=== PATIENT | male | born 1960 | race African-American/Black ===

== ENCOUNTER 2016-07-26 15:18 | Emergency (ER) | payer MEDICAID ==
[~2016-07-26] VITALS: Ht 177.8 cm; Wt 80.0 kg
[~2016-07-26 15:18] MED LIST: ASPI-1159 PO; ATOR40TA70 PO; CARB200T PO; HYDR25TA PO; LISI-604 PO; LORA10TA7 PO; METF10002 PO; MONT10TA21 PO; TERA2CAP53 PO
[2016-07-26 16:24] LABS: EOSINOPHILS % 8.3 % (0.0-5.0); HEMATOCRIT. 34.5 % (42.0-52.0); HEMOGLOBIN. 11.3 g/dL (14.0-18.0); LYMPHOCYTES % 20.9 % (20.0-50.0); MEAN CORPUSCULAR HEMOGLOBIN 28.9 pg (28.0-32.0); MEAN CORPUSCULAR VOLUME 88.1 fL (80.0-94.0); MEAN PLATELET VOLUME 7.2 fl (7.4-10.4); NEUTROPHILS % 59.8 % (40.0-76.0); PLATELET 252 x1000/uL (130-400); RED BLOOD CELL COUNT 3.92 mill/uL (4.7-6.1); RED CELL DISTRIBUTION WIDTH 13.2 % (11.6-14.6)
[2016-07-26 16:34] LABS: CARBAMAZEPINE 6.9 ug/mL (4-12); CARBON DIOXIDE 27 mEq/L (21-32); CHLORIDE 105 mEq/L (98-107); ETHANOL BLOOD < 10 mg/dL
[2016-07-26 17:42] LABS: CLARITY URINE CLEAR (CLEAR); COLOR URINE YELLOW (YELLOW); GLUCOSE URINE NEGATIVE (NEGATIVE); KETONES URINE NEGATIVE (NEGATIVE); LEUKOCYTE ESTERASE URINE NEGATIVE (NEGATIVE); NITRITE URINE NEGATIVE (NEGATIVE); OCCULT BLOOD URINE NEGATIVE (NEGATIVE); PH URINE 6.5 (4.5-8.0); PROTEIN URINE NEGATIVE (NEGATIVE); SPECIFIC GRAVITY URINE 1.018 (1.005-1.030); UROBILINOGEN URINE 0.2 E.U./dL (0.2-1.0)
[2016-07-26 18:12] LABS: *AMPHETAMINES SCREEN URINE NEGATIVE (NEGATIVE); *BARBITURATES SCREEN URINE NEGATIVE (NEGATIVE); *BENZODIAZEPINES SCREEN URINE NEGATIVE (NEGATIVE); *COCAINE SCREEN URINE NEGATIVE (NEGATIVE); CANNABINOID URINE SCREEN NEGATIVE (NEGATIVE); METHADONE URINE SCREEN NEGATIVE (NEGATIVE); OPIATES URINE SCREEN NEGATIVE (NEGATIVE); PHENCYCLIDINE URINE SCREEN NEGATIVE (NEGATIVE)
[2016-07-26 18:27] VITALS: BP 148/90
== END 2016-07-26 18:28 | disposition home or self-care (01) ==
LOC: ER 15:30
DX: R56.9 Unspecified convulsions (principal); I10 Essential (primary) hypertension; E11.9 Type 2 diabetes mellitus without complications; E78.00 Pure hypercholesterolemia, unspecified; Z88.8 Allergy status to other drugs, medicaments and biological substances; Z79.82 Long term (current) use of aspirin
CPT/HCPCS: 36415; 80053; 80156; 80305; 81003; 85025; 99284; G0482; Z7610

== ENCOUNTER 2021-10-15 14:02 | Emergency (ER) | payer MEDICAID ==
[~2021-10-15] VITALS: Ht 180.3 cm; Wt 90.0 kg
[~2021-10-15 14:02] MED LIST changes: -ASPI-1159 PO; +ASPI-1497 PO; -LISI-604 PO; +LISI20TA31 PO; +METF-416 PO; -METF10002 PO; +TERA2CAP4 PO; -TERA2CAP53 PO
[2021-10-15] MEDS ORDERED: keppra (14:13)
[2021-10-15] MEDS ORDERED: LEVETIRACETAM 1000MG PREMIX 100 ML IV ONE (14:15)
[2021-10-15 15:14] LABS: BASOPHILS % 1.3 % (0.0-2.0); EOSINOPHILS % 8.6 % (0.0-5.0); HEMATOCRIT. 36.7 % (42.0-52.0); LYMPHOCYTES % 24.3 % (20.0-50.0); MEAN CORPUSCULAR HEMOGLOBIN 29.6 pg (28.0-32.0); MEAN CORPUSCULAR VOLUME 90.7 fL (80.0-94.0); MEAN PLATELET VOLUME 7.1 fl (7.4-10.4); MONOCYTES % 7.4 % (2.0-8.0); NEUTROPHILS % 58.4 % (40.0-76.0); PLATELET 304 x1000/uL (130-400); RED BLOOD CELL COUNT 4.05 mill/uL (4.7-6.1); RED CELL DISTRIBUTION WIDTH 13.3 % (11.6-14.6)
[2021-10-15 15:20] LABS: CHLORIDE 103 mEq/L (98-107)
[2021-10-15 15:29] LABS: ETHANOL BLOOD < 10 mg/dL
[2021-10-15 17:28] VITALS: BP 130/88
== END 2021-10-15 17:29 | disposition home or self-care (01) ==
LOC: ER 14:19
DX: R56.9 Unspecified convulsions (principal); E11.9 Type 2 diabetes mellitus without complications; E78.00 Pure hypercholesterolemia, unspecified; I10 Essential (primary) hypertension; Z79.899 Other long term (current) drug therapy
CPT/HCPCS: 36415; 80053; 80320; 82962; 85025; 96365; 99284; J1953; G0480

== ENCOUNTER 2023-01-09 10:26 | Emergency (ER) | payer MEDICAID ==
[~2023-01-09] VITALS: Ht 177.8 cm; Wt 73.0 kg
[~2023-01-09 10:26] MED LIST changes: +MONT-46 PO; -MONT10TA21 PO; +keppra
[2023-01-09 10:30] VITALS: BP 138/78; PULSE 116; RESP 16; TEMP 97.8; O2SAT 98
[2023-01-09] MEDS ORDERED: LIDOCAINE HCL/EPINEPHRINE 1%-EPI 1:100,000 20 ML VIAL INFIL ONE (10:45)
[2023-01-09 11:21] LABS: BASOPHILS % 0.8 % (0.0-2.0); EOSINOPHILS % 7.9 % (0.0-5.0); HEMOGLOBIN. 12.2 g/dL (14.0-18.0); LYMPHOCYTES % 23.1 % (20.0-50.0); MEAN CORPUSCULAR HEMOGLOBIN 29.7 pg (28.0-32.0); MEAN CORPUSCULAR HGB CONC 32.1 g/dL (31.0-37.0); MEAN CORPUSCULAR VOLUME 92.3 fL (80.0-94.0); MEAN PLATELET VOLUME 7.3 fl (7.4-10.4); MONOCYTES % 10.4 % (2.0-8.0); NEUTROPHILS % 57.8 % (40.0-76.0); PLATELET 309 x1000/uL (130-400); RED BLOOD CELL COUNT 4.12 mill/uL (4.7-6.1); RED CELL DISTRIBUTION WIDTH 13.2 % (11.6-14.6); WHITE BLOOD COUNT 4.9 x1000/uL (4.5-11.0)
[2023-01-09] MEDS ORDERED: CARBAMAZEPINE 100MG TABLET CHEW PO ONE (12:00)
[2023-01-09 12:47] LABS: ALANINE AMINOTRANSFERASE 17 IU/L (10-49); ALBUMIN 4.4 g/dL (3.2-4.8); ASPARTATE AMINOTRANSFERASE 18 IU/L (<34); BILIRUBIN TOTAL 0.3 mg/dL (0.1-1.0); CALCIUM 9.3 mg/dL (8.7-10.4); CARBAMAZEPINE 3.1 ug/mL (4-12); CARBON DIOXIDE 21 mEq/L (21-32); CHLORIDE 104 mEq/L (98-107); CREATININE 1.4 mg/dL (0.6-1.3); GLUCOSE 169 mg/dL (70-105); POTASSIUM 4.8 mEq/L (3.5-5.1); PROTEIN TOTAL 7.8 g/dL (6.0-8.3); SODIUM 136 mEq/L (136-145); UREA NITROGEN BLOOD 13 mg/dL (9-23)
[2023-01-09 12:52] LABS: ETHANOL BLOOD < 10 mg/dL (<10)
== END 2023-01-09 14:00 | disposition home or self-care (01) ==
LOC: ER 11:37
DX: G40.509 Epileptic seizures related to external causes, not intractable, without status epilepticus (principal); S01.01XA Laceration without foreign body of scalp, initial encounter; E11.9 Type 2 diabetes mellitus without complications; I10 Essential (primary) hypertension; E78.00 Pure hypercholesterolemia, unspecified; Z88.8 Allergy status to other drugs, medicaments and biological substances; X58.XXXA Exposure to other specified factors, initial encounter; Y93.89 Activity, other specified; Y92.89 Other specified places as the place of occurrence of the external cause; Y99.8 Other external cause status
CPT/HCPCS: 80053; 80320; 80156; 85025; 36415; 70450; 93005; 12001; 99285; J3490; Z7610; G0480

== ENCOUNTER 2023-01-23 12:24 | Emergency (ER) | payer MEDICAID, OTHER ==
[~2023-01-23] VITALS: Ht 180.3 cm; Wt 86.2 kg
[2023-01-23 12:30] VITALS: BP 133/83; PULSE 82; RESP 16; TEMP 98.2; O2SAT 99
== END 2023-01-23 14:24 | disposition home or self-care (01) ==
LOC: ER 13:10
DX: Z48.02 Encounter for removal of sutures (principal); I10 Essential (primary) hypertension; E78.00 Pure hypercholesterolemia, unspecified; E11.9 Type 2 diabetes mellitus without complications; Z79.899 Other long term (current) drug therapy; Z88.8 Allergy status to other drugs, medicaments and biological substances; Z86.59 Personal history of other mental and behavioral disorders
CPT/HCPCS: 99281; Z7610

== ENCOUNTER 2024-11-14 08:50 | Emergency (ER) | payer MEDICAID ==
[~2024-11-14] VITALS: Ht 180.3 cm; Wt 77.0 kg
[2024-11-14 08:55] VITALS: O2SAT 99
[2024-11-14] MEDS: LEVETIRACETAM 1000MG PREMIX 100 ML IV ONE (09:36)
[2024-11-14] MEDS: SODIUM CHLORIDE 0.9% 1,000 ML IV ONE (09:36)
[2024-11-14 09:44] LABS: BASOPHILS % 1.0 % (0.0-2.0); EOSINOPHILS % 7.1 % (0.0-5.0); HEMATOCRIT. 36.0 % (42.0-52.0); HEMOGLOBIN. 11.7 g/dL (14.0-18.0); LYMPHOCYTES % 22.2 % (20.0-50.0); MEAN PLATELET VOLUME 7.0 fl (7.4-10.4); MONOCYTES % 8.2 % (2.0-8.0); NEUTROPHILS % 61.5 % (40.0-76.0); PLATELET 342 x1000/uL (130-400); RED BLOOD CELL COUNT 4.06 mill/uL (4.7-6.1); RED CELL DISTRIBUTION WIDTH 13.7 % (11.6-14.6)
[2024-11-14] MEDS: CARBAMAZEPINE 200MG TABLET PO ONE (09:47)
[2024-11-14 09:53] LABS: CREATININE 1.6 mg/dL (0.6-1.3); UREA NITROGEN BLOOD 18.0 mg/dL (9-23)
[2024-11-14 10:43] VITALS: BP 123/80; PULSE 60; RESP 18; TEMP 37.2; O2SAT 98
== END 2024-11-14 11:00 | disposition home or self-care (01) ==
LOC: ER 09:10
DX: G40.409 Other generalized epilepsy and epileptic syndromes, not intractable, without status epilepticus (principal); E11.9 Type 2 diabetes mellitus without complications; E78.00 Pure hypercholesterolemia, unspecified; I10 Essential (primary) hypertension; Z91.148 Patient's other noncompliance with medication regimen for other reason
CPT/HCPCS: 99284; 96365; 80048; 85025; 36415; J1953; J7030